=== PATIENT | female | born 1940 | race Caucasian/White ===

== ENCOUNTER 2016-12-14 09:25 | Emergency (ER) | payer MEDICARE, OTHER ==
[~2016-12-14] VITALS: Ht 160 cm; Wt 73.5 kg
--- NOTE | 2016-12-14 10:18 | PHYS DOC ---
Past Medical History Past Medical History: High Cholesterol, Hypertension, Stroke Additional Past Medical Histor: shingles, colon polyps Past Surgical History: Appendectomy, Cholecystectomy, Hysterectomy Additional Past Surgical Histo: colon resection Alcohol Use: None Drug Use: None Adult General Chief Complaint Chief Complaint: DIZZY/LIGHT HEADED HPI HPI Patient is a 76 year old female who presents with dizziness. Patient reports for the past month she has been "dizzy my head". She describes a feeling of lightheaded, but has not passed out. She denies any vertigo. She saw her PCP for the same last month, with no official diagnosis made. She denies any chest discomfort or SOB. No clear inciting or mitigating factors. Of note, patient is worried about the possibility of a brain tumor since her daughter had similar symptoms and was diagnosed with a tumor. Review of Systems Review of Systems Constitutional: Lightheaded episodes. Denies fever or chills Eyes: Denies change in visual acuity or eye pain HENT: Denies nasal congestion or sore throat Respiratory: Denies cough or shortness of breath Cardiovascular: Denies chest pain GI: Denies abdominal pain, nausea, vomiting, bloody stools or diarrhea : Denies dysuria or hematuria Musculoskeletal: Denies back pain or joint pain Integument: Denies rash or skin lesions Neurologic: Denies headache, focal weakness or sensory changes Current Medications Current Medications Current Medications Medications (Trade) Dose Ordered Sig/Cherry Start Time Stop Time Status Last Admin Dose Admin Sodium Chloride (Iv Sodium Chloride 0.9% 500ml Bag) 500 ml @ 500 mls/hr 1X ONCE 12/14/16 10:30 12/14/16 11:29 DC 12/14/16 10:41 500 MLS/HR Allergies Allergies Allergies Coded Allergies Type Severity Reaction Last Updated Verified codeine Adverse Reaction Intermediate "vomiting" 08/24/14 Yes Physical Exam Physical Exam Constitutional: Well developed, well nourished, no acute distress, non-toxic appearance HENT: Normocephalic, atraumatic, bilateral external ears normal Eyes: PERRL, EOMI, conjunctiva normal, no discharge Neck: Normal range of motion, no stridor Cardiovascular: Heart rate normal, regular rhythm, no murmur Lungs & Thorax: Bilateral breath sounds clear to auscultation Abdomen: Bowel sounds normal, soft, non-distended, no TTP Skin: Warm, dry, no erythema, no rash Extremities: No obvious deformity, no edema Neurologic: Alert and oriented X 3, GCS 15, CN II-XII grossly intact, strength intact and symmetrical throughout, sensation to light touch intact throughout, no dystaxia noted Current Patient Data Vital Signs Vital Signs Date Time Temp Pulse Resp B/P Pulse Ox O2 Delivery O2 Flow Rate FiO2 12/14/16 11:08 65 170/77 96 12/14/16 10:05 97.8 14 Room Air 97.8 Lab Values Laboratory Tests Test 12/14/16 10:10 12/14/16 10:30 White Blood Count 7.4x10^3/uL (4.0-11.0) Red Blood Count 4.65x10^6/uL (3.50-5.40) Hemoglobin 13.7g/dL (12.0-15.5) Hematocrit 40.3% (36.0-47.0) Mean Corpuscular Volume 87fL (79-100) Mean Corpuscular Hemoglobin 30pg (25-35) Mean Corpuscular Hemoglobin Concent 34g/dL (31-37) Red Cell Distribution Width 13.2% (11.5-14.5) Platelet Count 250x10^3/uL (140-400) Neutrophils (%) (Auto) 62% (31-73) Lymphocytes (%) (Auto) 26% (24-48) Monocytes (%) (Auto) 11% (0-9) H Eosinophils (%) (Auto) 1% (0-3) Basophils (%) (Auto) 1% (0-3) Neutrophils # (Auto) 4.6x10^3uL (1.8-7.7) Lymphocytes # (Auto) 1.9x10^3/uL (1.0-4.8) Monocytes # (Auto) 0.8x10^3/uL (0.0-1.1) Eosinophils # (Auto) 0.1x10^3/uL (0.0-0.7) Basophils # (Auto) 0.1x10^3/uL (0.0-0.2) Sodium Level 143mmol/L (136-145) Potassium Level 3.8mmol/L (3.5-5.1) Chloride Level 104mmol/L (98-107) Carbon Dioxide Level 27mmol/L (21-32) Anion Gap 12 (6-14) Blood Urea Nitrogen 20mg/dL (7-20) Creatinine 1.2mg/dL (0.6-1.0) H Estimated GFR (Cockcroft-Gault) 43.6 Glucose Level 142mg/dL (70-99) H Calcium Level 9.5mg/dL (8.5-10.1) Troponin I Quantitative < 0.017ng/mL (0.000-0.055) Urine Collection Type Unknown Urine Color Yellow Urine Clarity Clear Urine pH 5.5 Urine Specific [place] 1.020 Urine Protein Negativemg/dL (NEG-TRACE) Urine Glucose (UA) Negativemg/dL (NEG) Urine Ketones (Stick) Negativemg/dL (NEG) Urine Blood Negative (NEG) Urine Nitrite Negative (NEG) Urine Bilirubin Negative (NEG) Urine Urobilinogen Dipstick 0.2mg/dL (0.2 mg/dL) Urine Leukocyte Esterase Moderate (NEG) Urine RBC 0/HPF (0-2) Urine WBC 5-10/HPF (0-4) Urine Squamous Epithelial Cells Mod/LPF Urine Bacteria Few/HPF (0-FEW) Urine Mucus Mod/LPF Laboratory Tests 12/14/16 10:10 Laboratory Tests 12/14/16 10:10 Microbiology 12/14/16 Urine Culture - Preliminary, Resulted 12/14/16 Urine Culture Result 1 ([place]) - Preliminary, Resulted Microbiology 12/14/16 Urine Culture - Preliminary, Resulted 12/14/16 Urine Culture Result 1 ([place]) - Preliminary, Resulted EKG EKG EKG (my read): sinus rhythm, rate 67, LAD, intervals wnl, no acute ischemic changes Radiology/Procedures Radiology/Procedures CXR: IMPRESSION: No acute or focal process. No significant change CT head: Impression: No acute intracranial abnormality is seen. Course & Med Decision Making Course & Med Decision Making Pertinent Labs and Imaging studies reviewed. (See chart for details) Patient is 76-year-old female who presents with dizziness for the past month. No concerning findings on physical exam. Will check EKG, chest x-ray, CT head, labs to evaluate. Imaging results as above. Blood work unremarkable. UA equivocal for UTI, patient says she has no symptoms so will await culture before treating. Discussed results with patient, who is feeling okay at this time. Given duration of symptoms, I do not believe it is imperative the patient be admitted today. Instead we will discharge her with outpatient follow-up and strict return precautions. Dragon Disclaimer Dragon Disclaimer This electronic medical record was generated, in whole or in part, using a voice recognition dictation system. Departure Departure Impression: Primary Impression: Lightheadedness Disposition: HOME, SELF-CARE Condition: STABLE Referrals: CAROLYN HOLT MD (PCP) Patient Instructions: Dizziness Additional Instructions: Thank you for allowing us to provide care today in the Emergency Department. Keep your follow up appointment with your primary care doctor. Return promptly to the Emergency Department if you develop any new or concerning symptoms, as we discussed. HECTOR SILVA MD Dec 14, 2016 10:18
[2016-12-14 10:28] LABS: BASO # 0.1 x10^3/uL (0.0-0.2); BASO % 1 % (0-3); EOS % 1 % (0-3); HEMATOCRIT 40.3 % (36.0-47.0); HEMOGLOBIN 13.7 g/dL (12.0-15.5); LYMPH # 1.9 x10^3/uL (1.0-4.8); LYMPH % 26 % (24-48); MEAN CORPUSCULAR HEMOGLOBIN 30 pg (25-35); MEAN CORPUSCULAR HGB CONC 34 g/dL (31-37); MEAN CORPUSCULAR VOLUME 87 fL (79-100); MONO % 11 % (0-9); NEUT % 62 % (31-73); PLATELET COUNT 250 x10^3/uL (140-400); RED BLOOD COUNT 4.65 x10^6/uL (3.50-5.40); RED CELL DISTRIBUTION WIDTH 13.2 % (11.5-14.5); WHITE BLOOD COUNT 7.4 x10^3/uL (4.0-11.0)
[2016-12-14] MEDS ORDERED: IV NORMAL SALINE 500ML BAG 500 ML IV ONE (10:30)
--- NOTE | 2016-12-14 10:38 | RAD ---
Indication dizziness. Worsening over of month. Protocol study. PA and lateral views of the chest were obtained and are compared to an examination 10/16/2011. The heart and pulmonary vessels appear normal. The lungs are clear. There has not been a significant change compared to the previous exam. IMPRESSION: No acute or focal process. No significant change
[2016-12-14 10:44] LABS: CALCIUM 9.5 mg/dL (8.5-10.1); CREATININE 1.2 mg/dL (0.6-1.0); GFR 43.6; POTASSIUM 3.8 mmol/L (3.5-5.1)
[2016-12-14 11:01] LABS: BILIRUBIN,URINE NEGATIVE (NEG); GLUCOSE,URINE NEGATIVE (NEG); NITRITE,URINE NEGATIVE (NEG); PH,URINE 5.5; PROTEIN,URINE NEGATIVE (NEG-TRACE); UROBILINOGEN,URINE 0.2 mg/dL (0.2 mg/dL)
[2016-12-14 11:08] VITALS: BP 170/77
--- NOTE | 2016-12-14 11:08 | EKG ---
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
[2016-12-14 11:12] LABS: BACTERIA,URINE FEW /HPF (0-FEW); RBC,URINE 0 /HPF (0-2); SQUAMOUS EPITHELIAL CELL,UR MOD /LPF
--- NOTE | 2016-12-14 11:55 | RAD ---
Clinical indications: Dizziness.. Technique: Noncontrast axial cross sectional scanning of the head was performed. PQRS Compliance Statement: One or more of the following individualized dose reduction techniques were utilized for this examination: 1. Automated exposure control 2. Adjustment of the mA and/or kV according to patient size 3. Use of iterative reconstruction technique Findings: No acute intracranial hemorrhage or midline shift or mass-effect or hydrocephalus or extra-axial fluid collection is seen. No focal hypodense area or sulci effacement is seen to indicate an acute infarct or edema radiographically. No skull fracture or pneumocephalus is seen. No opacification of the mastoid sinuses or the paranasal sinuses is seen. The maxillary sinuses are not completely seen in this study. Impression: No acute intracranial abnormality is seen.
== END 2016-12-14 12:38 | disposition home or self-care (01) ==
LOC: ER 09:25 → EDBD 09:25 → ER 12:38
DX: R42 Dizziness and giddiness (principal); E78.00 Pure hypercholesterolemia, unspecified; I10 Essential (primary) hypertension; Z86.73 Personal history of transient ischemic attack (TIA), and cerebral infarction without residual deficits; Z90.710 Acquired absence of both cervix and uterus; Z90.49 Acquired absence of other specified parts of digestive tract; Z88.5 Allergy status to narcotic agent
CPT/HCPCS: 36415; 70450; 71020; 80048; 81001; 84484; 85027; 87086; 93005; 96360; 99285; J7040

== ENCOUNTER → 2018-08-18 | Outpatient (CLI) | payer BC ==
[2018-08-13 10:30] VITALS: BP 147/68
[~2018-08-18] MED LIST: ALEN70TA5 PO; AMOX1TAB11 PO; ASPI-612 PO; ATOR40TA59 PO; CLON0.2T PO; ENOX40DI3 SQ; Fluconazole PO; GABA-586 PO; HYDR-2758 PO; HYDR25TA9 PO; IPRA3AMP29 NEB; LOSA100T7 PO; METF500T16 PO; PRAM0.255 PO; Pantoprazole PO; SIME125C75 PO; VERA240C2 PO
--- NOTE | 2018-08-18 15:16 | RAD ---
Portable AP upright chest x-ray performed at 1:12 PM Clinical indications: Pneumonia. Follow-up study. COMPARISON: August 12, 2018. FINDINGS: Again seen is a diffuse left lung field infiltrate more consolidative within the left lung base. Since the previous study, the left hemidiaphragm is better visualized indicative of interval improvement of the left lung base consolidative infiltrate. Small left sided pleural effusion is stable. Right lung field remains clear. No pneumothorax is seen. Esophageal stent is present. The heart size and mediastinum are stable. IMPRESSION: Improvement of left lung base consolidative infiltrate. Electronically signed by: Norris Gonzalez MD (08/18/2018 3:13 PM) [facility]
== END | disposition home or self-care (01) ==
PROVIDERS: ATTEND Internal Medicine
DX: J18.9 Pneumonia, unspecified organism (principal); R91.8 Other nonspecific abnormal finding of lung field
CPT/HCPCS: 71045

== ENCOUNTER 2018-10-23 12:07 | Emergency (ER) | payer BC ==
[~2018-10-23] VITALS: Ht 160 cm; Wt 62.6 kg
[~2018-10-23 12:07] MED LIST changes: +CRESTOR40 MG PO; +CYPR4TAB31 PO; -GABA-586 PO; +GABA300C18 PO; +HYDR-2145 PO; -HYDR-2758 PO; +HYDR-2761 PO; +HYDR12.58 PO; -HYDR25TA9 PO; +LOSA100T14 PO; -LOSA100T7 PO; +ONDA8TAB9 PO
[2018-10-23] MEDS ORDERED: IPRATRPIUM/ALBUTEROL 0.5/2.5MG 3 ML NEBU. NEB ONE (12:30)
--- NOTE | 2018-10-23 13:31 | RAD ---
CHEST PA LATERAL History: shortness of breath. Comparison: September 09, 2018 Heart size: Stable Lyric/mediastinum: Stable Lungs: Mild linear markings left lung compatible with fibrosis or atelectasis. Mild markings in left lung base. No consolidated infiltrate. Pleura: There is some focal pleural thickening or fluid in the left lung base note that a CT scan from September 12, 2018 demonstrated some pleural thickening and pleural fluid collection. Pneumothorax: None visualized Bones: Regional skeleton appears grossly intact. Miscellaneous: Stent, presumably within the esophagus, again identified. Impression: 1. Left pleural base opacity, may represent chronic loculated pleural effusion or empyema. 2. No consolidating infiltrate. Mild markings in left lung, likely atelectasis. Electronically signed by: Danial Vigil MD (10/23/2018 1:27 PM) [facility]
[2018-10-23] MEDS ORDERED: NITROGLYCERIN SUBLINGUAL 0.4 MG BOTTLE OF 25. SL STA (14:05)
[2018-10-23] MEDS ORDERED: LORazepam 1 MG TABLET PO ONE (14:15)
[2018-10-23] MEDS ORDERED: CLON0.5T11 PO (15:15)
--- NOTE | 2018-10-23 15:15 | PHYS DOC ---
Past Medical History Past Medical History: Diabetes-Type II, High Cholesterol, Hypertension, Renal Disease, Stroke Additional Past Medical Histor: shingles, colon polyps Past Surgical History: Appendectomy, Cholecystectomy, Hysterectomy Additional Past Surgical Histo: colon resection; espohageal stent -2018; Alcohol Use: None Drug Use: None Adult General Chief Complaint Chief Complaint: SHORTNESS OF BREATH HPI HPI Patient is a 78-year-old female who presents with complaint of difficulty breathing that has been present since back in July when she had to have an esophageal stent placed. Patient is actually scheduled to have that stent removed tomorrow. states that she had gotten a bit anxious at home and just feels like she is not able to breathe. She does admit to a cough but states that there is nothing that has really changed regarding her cough. She has had no nausea or vomiting. Review of Systems Review of Systems Constitutional: Denies fever or chills [] Respiratory: Positive cough and shortness of breath [] Cardiovascular: No additional information not addressed in HPI [] GI: Denies abdominal pain, nausea, vomiting or diarrhea [] Musculoskeletal: Denies back pain or joint pain [] All other systems were reviewed and found to be within normal limits, except as documented in this note. Current Medications Current Medications Current Medications Medications (Trade) Dose Ordered Sig/Cherry Start Time Stop Time Status Last Admin Dose Admin Albuterol/ Ipratropium (Duoneb) 3 ml 1X ONCE 10/23/18 12:30 10/23/18 12:31 DC 10/23/18 12:22 3 ML Lorazepam (Ativan) 0.5 mg 1X ONCE 10/23/18 14:15 10/23/18 14:16 DC 10/23/18 14:54 0.5 MG Nitroglycerin (Nitrostat) 0.4 mg 1X STAT 10/23/18 14:05 10/23/18 14:10 DC 10/23/18 14:54 0.4 MG Allergies Allergies Allergies Coded Allergies Type Severity Reaction Last Updated Verified codeine Adverse Reaction Intermediate "vomiting" 08/24/14 Yes Physical Exam Physical Exam Constitutional: Well developed, well nourished, no acute distress, non-toxic appearance. [] HENT: Normocephalic, atraumatic, bilateral external ears normal, oropharynx moist, no oral exudates, nose normal. [] Eyes: PERRLA, EOMI, conjunctiva normal, no discharge. [] Neck: Normal range of motion, no tenderness, supple. [] Cardiovascular: Regular rate and rhythm [] Lungs & Thorax: Lungs reveal some expiratory wheezes bilaterally to auscultation [] Abdomen: Bowel sounds normal, soft, no tenderness. [] Skin: Warm, dry, no erythema, no rash. [] Extremities: No tenderness, no cyanosis, no clubbing, ROM intact, no edema. [] Neurologic: Alert and oriente, normal motor function, normal sensory function, no focal deficits noted. [] Current Patient Data Vital Signs Vital Signs Date Time Temp Pulse Resp B/P (MAP) Pulse Ox O2 Delivery O2 Flow Rate FiO2 10/23/18 14:54 87 122/58 10/23/18 12:25 96 Nasal Cannula 10/23/18 12:10 97.5 28 97.5 EKG EKG [] Radiology/Procedures Radiology/Procedures [] Impressions: Chest x-ray demonstrates no acute process. Course & Med Decision Making Course & Med Decision Making Pertinent Labs and Imaging studies reviewed. (See chart for details) [] Dragon Disclaimer Dragon Disclaimer This electronic medical record was generated, in whole or in part, using a voice recognition dictation system. Departure Departure Impression: Primary Impression: Shortness of breath Disposition: 01 HOME, SELF-CARE Condition: STABLE Referrals: PATRICK MONTEMAYOR (PCP) Patient Instructions: Shortness of Breath Scripts Clonazepam (CLONAZEPAM) 0.5 Mg Tablet 1 TAB PO BID PRN for ANXIETY, #14 TAB Prov: PAOLA RUIZ Jr. DO 10/23/18 PAOLA RUIZ Jr. DO Oct 23, 2018 15:15
[2018-10-23 15:56] VITALS: BP 104/56
== END 2018-10-23 16:20 | disposition home or self-care (01) ==
LOC: ER 12:07
DX: R06.02 Shortness of breath (principal); R05 Cough; R06.2 Wheezing; E78.00 Pure hypercholesterolemia, unspecified; I10 Essential (primary) hypertension; E11.9 Type 2 diabetes mellitus without complications; Z86.73 Personal history of transient ischemic attack (TIA), and cerebral infarction without residual deficits; Z88.5 Allergy status to narcotic agent
CPT/HCPCS: 71046; 94640; 99283; J7620

== ENCOUNTER 2018-11-14 12:39 | Inpatient (IN) | payer BC ==
[~2018-11-14] VITALS: Ht 154.9 cm; Wt 58.1 kg
[~2018-11-14 12:39] MED LIST changes: -ALEN70TA5 PO; +ALEN70TA6 PO; +CLON0.5T11 PO; -SIME125C75 PO; +SIME125C76 PO
[2018-11-14] MEDS ORDERED: IPRATRPIUM/ALBUTEROL 0.5/2.5MG 3 ML NEBU. NEB ONE (13:00)
--- NOTE | 2018-11-14 13:23 | RAD ---
EXAM: CHEST 1 VIEW History: Shortness of breath COMPARISON: 10/23/2018 TECHNIQUE: Single portable radiograph of the chest FINDINGS: The cardiac silhouette is unremarkable. Mild left lung base airspace opacity likely atelectasis or infiltrate. Mild prominent bilateral interstitial lung markings. IMPRESSION: Mild left lung base airspace opacity likely atelectasis or infiltrate. Electronically signed by: Dinesh Bragg MD (11/14/2018 1:19 PM) [facility]
[2018-11-14 13:40] LABS: BASO # 0.1 x10^3/uL (0.0-0.2); BASO % 1 % (0-3); EOS % 0 % (0-3); HEMATOCRIT 33.1 % (36.0-47.0); HEMOGLOBIN 11.3 g/dL (12.0-15.5); LYMPH # 2.4 x10^3/uL (1.0-4.8); LYMPH % 24 % (24-48); MEAN CORPUSCULAR HEMOGLOBIN 28 pg (25-35); MEAN CORPUSCULAR HGB CONC 34 g/dL (31-37); MEAN CORPUSCULAR VOLUME 82 fL (79-100); MONO # 0.9 x10^3/uL (0.0-1.1); MONO % 9 % (0-9); NEUT # 6.6 x10^3uL (1.8-7.7); NEUT % 66 % (31-73); PLATELET COUNT 341 x10^3/uL (140-400); RED BLOOD COUNT 4.02 x10^6/uL (3.50-5.40); RED CELL DISTRIBUTION WIDTH 20.4 % (11.5-14.5); WHITE BLOOD COUNT 9.9 x10^3/uL (4.0-11.0)
[2018-11-14 13:50] LABS: CALCIUM 9.8 mg/dL (8.5-10.1); CREATININE 3.1 mg/dL (0.6-1.0); GFR 14.5; POTASSIUM 3.4 mmol/L (3.5-5.1)
[2018-11-14 13:56] LABS: ALBUMIN 3.3 g/dL (3.4-5.0); DIRECT BILIRUBIN 0.3 mg/dL (0.0-0.2); TOTAL BILIRUBIN 0.9 mg/dL (0.2-1.0); TOTAL PROTEIN 7.4 g/dL (6.4-8.2)
--- NOTE | 2018-11-14 14:13 | EKG ---
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
--- NOTE | 2018-11-14 14:17 | PHYS DOC ---
Past Medical History Past Medical History: Diabetes-Type II, High Cholesterol, Hypertension, Renal Disease, Stroke Additional Past Medical Histor: shingles, colon polyps Past Surgical History: Appendectomy, Cholecystectomy, Hysterectomy Additional Past Surgical Histo: colon resection; espohageal stent -2018; Alcohol Use: None Drug Use: None Adult General Chief Complaint Chief Complaint: SHORTNESS OF BREATH HPI HPI 78-year-old female presenting to the emergency department today with shortness of breath for the past 2 weeks. She reports a recent removal of the stent from her esophagus. Her shortness of breath is worse with exertion and improved with rest. She denies any chest pain fevers chills headache. Location; lungs. Duration; intermittent. No alleviating factors. ROS neg for chest pain abdominal pain vomiting fevers or chills. All other review of systems is negative unless otherwise noted in history of present illness. ED course: 78-year-old female presenting the emergency department today with worsening shortness of breath. Afebrile here. Heart rate within normal limits. Respiratory elevated along with decreased oxygenation. Nasal cannula applied which brought the patient's oxygenation to the mid 90s. Patient has clear lungs bilaterally. Abdomen is soft and nontender. EKG chest x-ray and blood work ordered. CBC is within normal limits. Mild anemia. Up from previous. Chemistry panel shows elevated BUN and creatinine. ProBNP is elevated. D-dimer is elevated. Troponin within normal limits. ProBNP is elevated. Chest x-ray shows possible pneumonia. I spoke to Dr. Hobbs who accepts patient for admission. Given the elevated d-dimer, we will need to pursue a ventilation perfusion scan because of the poor renal function. I spoke with Dr. Hobbs a second time and informed him of the elevated d-dimer test. It will take a while for the VQ scan to be completed. We will admit the patient to the hospital pending a VQ scan. Dr. Hobbs has accepted the patient for admission and he will follow up on the VQ scan which he agrees to by phone. Review of Systems Review of Systems SEE ABOVE. Current Medications Current Medications Current Medications Medications (Trade) Dose Ordered Sig/Cherry Start Time Stop Time Status Last Admin Dose Admin Albuterol/ Ipratropium (Duoneb) 3 ml 1X ONCE 11/14/18 13:00 11/14/18 13:01 DC 11/14/18 13:14 3 ML Piperacillin Sod/ Tazobactam Sod (Zosyn Per Pharmacy) 1 each PRN DAILY PRN 11/14/18 15:30 Piperacillin Sod/ Tazobactam Sod 2.25 gm/Sodium Chloride 50 ml @ 100 mls/hr 1X ONCE 11/14/18 15:45 11/14/18 16:14 DC 11/14/18 15:54 100 MLS/HR Vancomycin HCl (Vanco Per Pharmacy) 1 each PRN DAILY PRN 11/14/18 15:30 11/14/18 16:07 1 EACH Vancomycin HCl 1.25 gm/Sodium Chloride 250 ml @ 166.667 mls/hr 1X ONCE 11/14/18 15:45 11/14/18 17:14 11/14/18 16:30 166.667 MLS/HR Allergies Allergies Allergies Coded Allergies Type Severity Reaction Last Updated Verified codeine Adverse Reaction Intermediate "vomiting" 11/14/18 Yes Physical Exam Physical Exam SEE ABOVE Constitutional: Well developed, well nourished, appears mildly anxious HENT: Normocephalic, atraumatic, bilateral external ears normal, oropharynx moist, no oral exudates, nose normal. Eyes: PERRLA, EOMI, conjunctiva normal, no discharge. [] Neck: Normal range of motion, no tenderness, supple, no stridor. Cardiovascular:Heart rate regular rhythm, no murmur [] Lungs & Thorax: Bilateral breath sounds clear to auscultation [] Abdomen: Bowel sounds normal, soft, no tenderness, no masses, no pulsatile masses. Skin: Warm, dry, no erythema, no rash. [] Back: No tenderness, no CVA tenderness. Extremities: No tenderness, no cyanosis, no clubbing, ROM intact, no edema. Neurologic: Alert and oriented X 3, normal motor function, normal sensory function, no focal deficits noted. [] Psychologic: Affect normal, judgement normal, mood normal. [] Current Patient Data Vital Signs Vital Signs Date Time Temp Pulse Resp B/P (MAP) Pulse Ox O2 Delivery O2 Flow Rate FiO2 11/14/18 15:40 62 24 123/57 (79) 98 Nasal Cannula 2.0 11/14/18 12:55 97.5 97.5 Lab Values Laboratory Tests Test 11/14/18 13:27 White Blood Count 9.9 x10^3/uL (4.0-11.0) Red Blood Count 4.02 x10^6/uL (3.50-5.40) Hemoglobin 11.3 g/dL (12.0-15.5) L Hematocrit 33.1 % (36.0-47.0) L Mean Corpuscular Volume 82 fL (79-100) Mean Corpuscular Hemoglobin 28 pg (25-35) Mean Corpuscular Hemoglobin Concent 34 g/dL (31-37) Red Cell Distribution Width 20.4 % (11.5-14.5) H Platelet Count 341 x10^3/uL (140-400) Neutrophils (%) (Auto) 66 % (31-73) Lymphocytes (%) (Auto) 24 % (24-48) Monocytes (%) (Auto) 9 % (0-9) Eosinophils (%) (Auto) 0 % (0-3) Basophils (%) (Auto) 1 % (0-3) Neutrophils # (Auto) 6.6 x10^3uL (1.8-7.7) Lymphocytes # (Auto) 2.4 x10^3/uL (1.0-4.8) Monocytes # (Auto) 0.9 x10^3/uL (0.0-1.1) Eosinophils # (Auto) 0.0 x10^3/uL (0.0-0.7) Basophils # (Auto) 0.1 x10^3/uL (0.0-0.2) Platelet Estimate Pending D-Dimer (Jadyn) 2.63 ug/mlFEU (0.00-0.50) H Sodium Level 138 mmol/L (136-145) Potassium Level 3.4 mmol/L (3.5-5.1) L Chloride Level 98 mmol/L (98-107) Carbon Dioxide Level 21 mmol/L (21-32) Anion Gap 19 (6-14) H Blood Urea Nitrogen 34 mg/dL (7-20) H Creatinine 3.1 mg/dL (0.6-1.0) H Estimated GFR (Cockcroft-Gault) 14.5 Glucose Level 92 mg/dL (70-99) Calcium Level 9.8 mg/dL (8.5-10.1) Total Bilirubin 0.9 mg/dL (0.2-1.0) Direct Bilirubin 0.3 mg/dL (0.0-0.2) H Aspartate Amino Transferase (AST) 18 U/L (15-37) Alanine Aminotransferase (ALT) 22 U/L (14-59) Alkaline Phosphatase 85 U/L (46-116) Troponin I Quantitative < 0.017 ng/mL (0.000-0.055) GU-Jog-Q-Type Natriuretic Peptide 3677 pg/mL (0-449) H Total Protein 7.4 g/dL (6.4-8.2) Albumin 3.3 g/dL (3.4-5.0) L Lipase 110 U/L (73-393) Laboratory Tests 11/14/18 13:27 Laboratory Tests 11/14/18 13:27 EKG EKG [] Radiology/Procedures Radiology/Procedures [] Course & Med Decision Making Course & Med Decision Making Pertinent Labs and Imaging studies reviewed. (See chart for details) [] Dragon Disclaimer Dragon Disclaimer This electronic medical record was generated, in whole or in part, using a voice recognition dictation system. Departure Departure Impression: Primary Impression: Pneumonia Additional Impression: [id number] kidney injury Disposition: ADMITTED INPATIENT Admitting Physician: Mary Hobbs Condition: STABLE Referrals: PATRICK MONTEMAYOR (PCP) Problem Qualifiers TOMASZ WINN MD Nov 14, 2018 14:17
[2018-11-14] MEDS ORDERED: PIP/TAZO PER PHARMACY MC PRN (15:30)
[2018-11-14] MEDS ORDERED: VANCOMYCIN 1.25 GM in IV NORMAL SALINE 250ML 250 ML IV ONE (15:45)
[2018-11-14] MEDS ORDERED: PIPERACILLIN/TAZOBACTAM 2.25 GM in IV NORMAL SALINE 50ML 50 ML IV ONE (15:45)
[2018-11-14] MEDS: VANCOMYCIN PER PHARMACY MC PRN (16:07)
--- NOTE | 2018-11-14 16:12 | NUR ---
Pharmacy Vancomycin Dosing Note S:Consulted to monitor and dose vancomycin started 11/14/18. O:HENRI ANDERSON is a 78 year old F with Pneumonia. Height: 5 feet, 1 inches Weight: 56.7 kg [place] Body Weight: 47.80 Adjusted Body Weight: 51.36 Dosing Weight: Actual Other Antibiotics: zosyn LABS: Last BUN: 34 Last Creatinine: 3.1 Creatinine Clearance: 11 mL/min Last WBC: 9.9 Last Platelets: 341 Tmax (past 24 hours): 97.5 Microbiology: - I/O: - Vancomycin Dosing: Loading Dose: 1250 mg x1 Dosing Weight: Actual Target Trough: 15-20 A: Based on: weight and renal function P: 1. Dose Vancomycin 1250 mg IV One Time 2. Follow up random level in 48 hours if vancomycin continues 3. Pharmacy will continue to monitor, follow and adjust therapy as needed. Kary Carroll RPH, 11/14/18 [id number]
[2018-11-14 16:57] LABS: ANISOCYTOSIS MOD; PLT ESTIMATE ADEQUATE (ADEQUATE)
--- NOTE | 2018-11-14 17:35 | NUR ---
PATIENT ARRIVED ON THE UNIT PER BED, ASSESSMENT COMPLETED, PATIENT DENIES PAIN OR DISCOMFORT AT THIS TIME, VANCOMYCIN INFUSING THROUGH AN IV IN THE RIGHT AC (20G.), WILL NOTIFY DR. ZAMUDIO FOR ORDERS.
[2018-11-14 19:00] VITALS: BP 131/68
--- NOTE | 2018-11-14 19:27 | RAD ---
Examination: LUNG VENT/PERFUSION SCAN(VQ) History: soa x 1 month. Comparison/Correlation: 11/14/2018 portable chest x-ray exam Findings: 18 mCi xenon gas was administered for ventilation imaging. Delayed washout radiotracer compatible with COPD identified. No ventilation defect. 5 mCi technetium 99m MAA was intravenously administered for perfusion imaging. Imaging was performed in 8 projections. There is no focal mismatch defect identified. No definite matched defect. Impression: Low probability for pulmonary embolism. COPD. Electronically signed by: Philip Durant MD (11/14/2018 7:23 PM) [facility]
--- NOTE | 2018-11-14 19:35 | NUR ---
BLOOD SUGAR PER FINGERSTICK OBTAINED FROM PATIENT AT 1715, READING FOLLOWS 60, PATIENT ALERT AND WITHOUT S/S OF HYPO GLYCEMIA, APPLE JUICE GIVEN TO PATIENT PER HEBREW PROFESSOR (4OZ. CONTAINER X2), PATIENT LEAVES THE UNIT V-Q SCAN BEFORE THIS ENERGY OPERATIONS VICE PRESIDENT CAN ADMINISTER DEXTROSE. DR. ZAMUDIO NOTIFIED AND ORDERS RECEIVED.
[2018-11-14] MEDS: IV DEXTROSE 5% - 0.9 % NACL 1,000 ML IV SCH (20:22)
[2018-11-14] MEDS ORDERED: clonazePAM 0.5 MG TABLET PO PRN (20:30)
[2018-11-14] MEDS ORDERED: ONDANSETRON ODT 4 MG TAB.RAPDIS. PO PRN (20:30)
[2018-11-14] MEDS: IPRATRPIUM/ALBUTEROL 0.5/2.5MG 3 ML NEBU. NEB SCH (20:40)
[2018-11-14] MEDS ORDERED: GABAPENTIN 300 MG CAPSULE. PO SCH (21:00)
[2018-11-14] MEDS: CYPROHEPTADINE 4 MG TABLET. PO SCH (22:00)
[2018-11-14] MEDS: ATORVASTATIN CALCIUM 40 MG TABLET. PO SCH (22:00)
[2018-11-14] MEDS: PRAMIPEXOLE 0.25 MG TABLET. PO SCH (22:00)
[2018-11-14] MEDS: cloNIDine HCL 0.2 MG TABLET PO SCH (22:02)
[2018-11-14 22:58] VITALS: BP 122/62
[2018-11-15] VITALS (7 sets, daily range): BP systolic 83–141; BP diastolic 41–72
[2018-11-15] MEDS: PIPERACILLIN/TAZOBACTAM 2.25 GM in IV NORMAL SALINE 50ML 50 ML IV SCH ×5 (00:09→23:56)
[2018-11-15] MEDS ORDERED: IV NORMAL SALINE 500ML BAG 500 ML IV ONE (03:00)
--- NOTE | 2018-11-15 03:17 | NUR ---
patient blood pressure was 83/41, and heart rate 52. The nurse called Dr Hobbs who ordered Iv bolus 500cc to be infused and to repeat the same if the Blood pressure does not improve. Orders carried out and the nurse will continue to monitor the patient.
[2018-11-15 03:49] LABS: HEMATOCRIT 26.3 % (36.0-47.0); HEMOGLOBIN 8.7 g/dL (12.0-15.5); RED BLOOD COUNT 3.15 x10^6/uL (3.50-5.40); RED CELL DISTRIBUTION WIDTH 20.1 % (11.5-14.5); WHITE BLOOD COUNT 5.9 x10^3/uL (4.0-11.0)
[2018-11-15 04:19] LABS: CALCIUM 8.3 mg/dL (8.5-10.1); CREATININE 2.9 mg/dL (0.6-1.0); GFR 15.7; POTASSIUM 3.2 mmol/L (3.5-5.1)
[2018-11-15] MEDS: IV DEXTROSE 5% - 0.9 % NACL 1,000 ML IV SCH ×2 (06:46→15:40)
[2018-11-15] MEDS: IPRATRPIUM/ALBUTEROL 0.5/2.5MG 3 ML NEBU. NEB SCH ×4 (07:59→19:36)
[2018-11-15] MEDS: cloNIDine HCL 0.2 MG TABLET PO SCH (09:00)
[2018-11-15] MEDS ORDERED: cloNIDine HCL 0.2 MG TABLET PO SCH (09:00)
[2018-11-15] MEDS ORDERED: VERAPAMIL SR 120 MG TABLET.ER. PO SCH (09:00)
[2018-11-15] MEDS: ASPIRIN ENTERIC COATED 81 MG TABLET.DR. PO SCH (09:22)
[2018-11-15] MEDS: CYPROHEPTADINE 4 MG TABLET. PO SCH ×3 (09:22→22:13)
[2018-11-15] MEDS ORDERED: ONDANSETRON PF 4 MG/2 ML VIAL. IV PRN (12:15)
[2018-11-15] MEDS ORDERED: ACETAMINOPHEN 500 MG TABLET PO PRN (12:15)
[2018-11-15] MEDS ORDERED: PANTOPRAZOLE IV PUSH 40 MG VIAL. IVP ONE (12:15)
--- NOTE | 2018-11-15 12:27 | PDOC ---
Provider Note Provider Note Pt seen.H&P dictated.#[id number]. LAUREN ZAMUDIO MD Nov 15, 2018 12:27
[2018-11-15] MEDS ORDERED: ENOXAPARIN 40 MG/0.4 ML SYRINGE. SQ SCH (12:30)
[2018-11-15] MEDS ORDERED: POTASSIUM CHL 20MEQ PREMIX 50 ML IV ONE (12:30)
[2018-11-15] MEDS ORDERED: POTASSIUM CHLORIDE 20 MEQ/15 ML ORAL LIQUID. PO ONE (12:45)
[2018-11-15] MEDS: ENOXAPARIN 30 MG/0.3 ML SYRINGE. SQ SCH (13:08)
[2018-11-15] MEDS: AMINO AC 3%/ELECTROLYTE/GLYCER 1,000 ML IV SCH (13:09)
--- NOTE | 2018-11-15 13:57 | HP ---
ADMIT DATE: 11/14/2018 LOCATION: 528. REASON FOR ADMISSION TO THE HOSPITAL: Nausea, vomiting, shortness of breath, acute on chronic kidney disease. HISTORY OF PRESENT ILLNESS: The patient is a 78-year-old female patient known to me. She had admitted to the hospital 3 months ago for spontaneous pneumomediastinum and pneumothorax from esophageal perforation. At that time, the patient had an esophageal stent and a video-assisted thoracotomy and chest tube placement. She did well and in September, she was admitted for acute on chronic kidney disease. She improved with fluids. Her baseline is around 2 of creatinine. She had esophageal stent removed at the [facility] in October 2-3 weeks ago. She was not doing well, has been having nausea, vomiting and weak, was brought to the hospital, infiltrate in the lung, possible pneumonia. His kidney function was bad at 3.1, BUN 34 and she was not able to keep anything down, dehydrated, was admitted to the hospital. OTHER MEDICAL HISTORY: Hypertension, hyperlipidemia, GERD, diabetes, osteopenia. PAST SURGICAL HISTORY: Had esophageal perforation, spontaneous had esophageal stent placed 3 months ago, removed 3 weeks ago, had a video-assisted thoracotomy for pneumomediastinum, pneumothorax with abscess formation is all healed. She also had history of part of the colon removed, gallbladder surgery, appendectomy, hysterectomy. FAMILY HISTORY: Positive for diabetes, hypertension. SOCIAL HISTORY: Smoked for 25 years, quit a couple of years ago. Denies alcohol. ALLERGIES: CODEINE CAUSES NAUSEA AND VOMITING. MEDICATIONS: Aspirin 81 mg daily, atorvastatin 40 mg daily, clonidine 0.2 twice a day, gabapentin 300 mg daily, hydrochlorothiazide daily, losartan 100 mg daily, metformin 500 mg twice a day which was stopped secondary to kidney failure, Mirapex 0.25 at bedtime, verapamil 240 mg daily, Protonix 40 mg daily. FAMILY HISTORY: Diabetes. SOCIAL HISTORY: Lives at home. She has a family who stays with her. REVIEW OF SYMPTOMS: Not able to keep any food down, nausea and vomiting for last 3-4 days. Denies any chest pain, denies any fever. PHYSICAL EXAMINATION: GENERAL: The patient looks sicker. VITAL SIGNS: Temperature 97, pulse 76, respiration 26, blood pressure 107/68, 94% on 2 liters. HEENT: Head is atraumatic. Pupils equal. Oral cavity: Dry heaves, slight congestion. NECK: Supple. Thyroid not enlarged. JVD not elevated. CHEST: Symmetrical. CARDIOVASCULAR: S1, S2. LUNGS: A few crackles at the bases. ABDOMEN: Soft, bowel sounds present, no mass palpable. EXTERNAL GENITALIA: No Cruz. RECTUM: Deferred. EXTREMITIES: No calf tenderness, no edema. NEUROLOGIC: Moving all extremities. No focal deficits noted. LABORATORY DATA: Shows a white count of 10, hemoglobin 11, platelets 341. D-dimer 2.6. Electrolytes show sodium 138, potassium 3.4, chloride 88, bicarbonate 21, anion gap 19, BUN 34, creatinine 3.1. LFTs were normal. BNP 3677. Troponin was negative and had a chest x-ray shows infiltrate in the left base, had a V/Q scan negative for pulmonary embolism. FINAL IMPRESSION: 1. Nausea and vomiting, possible gastritis. 2. History of esophageal perforation; 3 months ago, had esophageal stent, which was removed 3 weeks ago. 3. Acute on chronic kidney disease. Her baseline creatinine is around less than 2. 4. Hypertension. 5. Chronic obstructive pulmonary disease. 6. Hyperlipidemia. 7. Dehydration. PLAN: At this time, admit to hospital, hydrate with IV fluids, clear liquid diet, Zofran for nausea. Replace potassium and monitor kidney function and see how she improves in the next 24-48 hours. LAUREN ZAMUDIO MD DR: BREEZY/andrew JOB#: [id number] / [id number] PATRICK Ruth
[2018-11-15] MEDS ORDERED: POTASSIUM CL 20MEQ D5-0.9%NACL 1,000 ML IV ONE (15:15)
--- NOTE | 2018-11-15 15:47 | NUR ---
Pt had a run of V-Tach on monitor at 14:48:53 Dr. Hobbs notified. New orders: EKG, IV potassium 20 meq, labs Mag & K+ post fluid infusion.
--- NOTE | 2018-11-15 15:53 | EKG ---
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
[2018-11-15] MEDS: VANCOMYCIN PER PHARMACY MC PRN (15:56)
[2018-11-15] MEDS: PRAMIPEXOLE 0.25 MG TABLET. PO SCH (22:13)
[2018-11-15] MEDS: ATORVASTATIN CALCIUM 40 MG TABLET. PO SCH (22:14)
[2018-11-15 23:12] LABS: MAGNESIUM 1.4 mg/dL (1.8-2.4); POTASSIUM 4.1 mmol/L (3.5-5.1)
[2018-11-16] MEDS ORDERED: MAGNESIUM SULFATE 2GM 50 ML IV ONE
[2018-11-16] MEDS: AMINO AC 3%/ELECTROLYTE/GLYCER 1,000 ML IV SCH ×2 (01:30→14:37)
[2018-11-16 03:00] VITALS: BP 131/58
[2018-11-16 04:59] LABS: BASO % 0 % (0-3); EOS % 0 % (0-3); HEMATOCRIT 27.2 % (36.0-47.0); HEMOGLOBIN 9.2 g/dL (12.0-15.5); LYMPH # 1.6 x10^3/uL (1.0-4.8); LYMPH % 37 % (24-48); MEAN CORPUSCULAR HEMOGLOBIN 28 pg (25-35); MEAN CORPUSCULAR HGB CONC 34 g/dL (31-37); MEAN CORPUSCULAR VOLUME 84 fL (79-100); MONO # 0.6 x10^3/uL (0.0-1.1); MONO % 14 % (0-9); NEUT # 2.1 x10^3uL (1.8-7.7); NEUT % 49 % (31-73); PLATELET COUNT 265 x10^3/uL (140-400); RED BLOOD COUNT 3.24 x10^6/uL (3.50-5.40); RED CELL DISTRIBUTION WIDTH 20.8 % (11.5-14.5); WHITE BLOOD COUNT 4.3 x10^3/uL (4.0-11.0)
[2018-11-16] MEDS: PIPERACILLIN/TAZOBACTAM 2.25 GM in IV NORMAL SALINE 50ML 50 ML IV SCH ×3 (05:49→14:37)
[2018-11-16 05:52] LABS: CALCIUM 8.2 mg/dL (8.5-10.1); CREATININE 2.3 mg/dL (0.6-1.0); GFR 20.5; POTASSIUM 4.5 mmol/L (3.5-5.1)
[2018-11-16] MEDS: PANTOPRAZOLE IV PUSH 40 MG VIAL. IVP SCH (06:47)
[2018-11-16 07:00] VITALS: BP 145/69
[2018-11-16 07:00] LABS: % EOS 4 % (0-5); % LYMPHS 33 % (24-48); % MONOS 8 % (0-10); % SEGS 55 % (35-66); ANISOCYTOSIS MOD; PLT ESTIMATE ADEQUATE (ADEQUATE)
[2018-11-16] MEDS: IPRATRPIUM/ALBUTEROL 0.5/2.5MG 3 ML NEBU. NEB SCH ×4 (07:53→19:30)
[2018-11-16] MEDS: ENOXAPARIN 30 MG/0.3 ML SYRINGE. SQ SCH (09:07)
[2018-11-16] MEDS: CYPROHEPTADINE 4 MG TABLET. PO SCH ×3 (09:07→20:50)
[2018-11-16] MEDS: ASPIRIN ENTERIC COATED 81 MG TABLET.DR. PO SCH (09:07)
[2018-11-16 11:01] VITALS: BP 137/61
--- NOTE | 2018-11-16 12:34 | PDOC ---
PROGRESS NOTES Subjective Subjective feels better ,eating lunch today Objective Objective Vital Signs Date Time Temp Pulse Resp B/P (MAP) Pulse Ox O2 Delivery O2 Flow Rate FiO2 11/16/18 11:47 Room Air 11/16/18 11:01 97.8 65 18 137/61 (86) 100 97.8 Intake and Output 11/16/18 07:01 Intake Total 770 ml Balance 770 ml Intake Oral 720 ml IV Total 50 ml # Voids 1 Physical Exam Abdomen: Normal bowel sounds, Soft Heart: Regular rate, Normal S1, Normal S2 Extremities: No clubbing General: Alert HEENT: Atraumatic Lungs: Clear to auscultation MUSCULOSKELETAL: No deformity Neck: Supple Neuro: Normal speech Psych/Mental Status: Mental status NL Skin: No breakdown Diagnosis Problem List Problems Medical Problems: (1) Vujtg-fw-nonvnbl kidney injury Status: Acute Assessment Assessment Problems Medical Problems: (1) Fuony-cg-snsedva kidney injury Status: Acute FINAL IMPRESSION: 1. Nausea and vomiting, possible gastritis. 2. History of esophageal perforation; 3 months ago, had esophageal stent, which was removed 3 weeks ago. 3. Acute on chronic kidney disease. Her baseline creatinine is around less than 2. 4. Hypertension. 5. Chronic obstructive pulmonary disease. 6. Hyperlipidemia. 7. Dehydration. PLAN: cr trending down with with fluids.2.3 iv vanco+zosyn ID consult. cxr today. At this time, admit to hospital, hydrate with IV fluids, clear liquid diet, Zofran for nausea. Replace potassium and monitor kidney function and see how she improves in the next 24-48 hours. Plan Plan of Care Problems Medical Problems: (1) Zorzb-ep-funxidc kidney injury Status: Acute Comment Review of Relevant I have reviewed the following items jojo (where applicable) has been applied. Labs Laboratory Tests Test 11/15/18 16:44 11/15/18 20:27 11/15/18 22:22 11/16/18 03:55 Glucose (Fingerstick) 146 mg/dL (70-99) 112 mg/dL (70-99) Potassium Level 4.1 mmol/L (3.5-5.1) 4.5 mmol/L (3.5-5.1) Magnesium Level 1.4 mg/dL (1.8-2.4) 1.8 mg/dL (1.8-2.4) White Blood Count 4.3 x10^3/uL (4.0-11.0) Red Blood Count 3.24 x10^6/uL (3.50-5.40) Hemoglobin 9.2 g/dL (12.0-15.5) Hematocrit 27.2 % (36.0-47.0) Mean Corpuscular Volume 84 fL (79-100) Mean Corpuscular Hemoglobin 28 pg (25-35) Mean Corpuscular Hemoglobin Concent 34 g/dL (31-37) Red Cell Distribution Width 20.8 % (11.5-14.5) Platelet Count 265 x10^3/uL (140-400) Neutrophils (%) (Auto) 49 % (31-73) Lymphocytes (%) (Auto) 37 % (24-48) Monocytes (%) (Auto) 14 % (0-9) Eosinophils (%) (Auto) 0 % (0-3) Basophils (%) (Auto) 0 % (0-3) Neutrophils # (Auto) 2.1 x10^3uL (1.8-7.7) Lymphocytes # (Auto) 1.6 x10^3/uL (1.0-4.8) Monocytes # (Auto) 0.6 x10^3/uL (0.0-1.1) Eosinophils # (Auto) 0.0 x10^3/uL (0.0-0.7) Basophils # (Auto) 0.0 x10^3/uL (0.0-0.2) Segmented Neutrophils % 55 % (35-66) Lymphocytes % 33 % (24-48) Monocytes % 8 % (0-10) Eosinophils % 4 % (0-5) Platelet Estimate Adequate (ADEQUATE) Anisocytosis Mod Sodium Level 142 mmol/L (136-145) Chloride Level 110 mmol/L (98-107) Carbon Dioxide Level 22 mmol/L (21-32) Anion Gap 10 (6-14) Blood Urea Nitrogen 27 mg/dL (7-20) Creatinine 2.3 mg/dL (0.6-1.0) Estimated GFR (Cockcroft-Gault) 20.5 Glucose Level 70 mg/dL (70-99) Calcium Level 8.2 mg/dL (8.5-10.1) Test 11/16/18 07:15 11/16/18 07:38 11/16/18 11:36 Glucose (Fingerstick) 63 mg/dL (70-99) 67 mg/dL (70-99) 63 mg/dL (70-99) Microbiology 11/14/18 Blood Culture - Preliminary, Resulted NO GROWTH AFTER 1 DAY Medications Current Medications Amino Acids/ Glycerin/ Electrolytes 1,000 ml @ 80 mls/hr [id number] IV Last administered on 11/15/18at 13:09; Start 11/15/18 at 13:00 Enoxaparin Sodium (Lovenox 30mg Syringe) 30 mg DAILY SQ Last administered on at 09:07; Start 11/15/18 at 12:45 Enoxaparin Sodium (Lovenox 40mg Syringe) 40 mg Q24H SQ ; Start 11/15/18 at 12:30 ; Status UNV Magnesium Sulfate 50 ml @ 25 mls/hr 1X ONCE IV Last administered on 11/16/18at 00:32; Start 11/16/18 at 00:00; Stop 11/16/18 at 01:59; Status DC Pantoprazole Sodium (PROTONIX VIAL for IV PUSH) 40 mg DAILYAC IVP Last administered on 11/16/18at 06:47; Start 11/16/18 at 07:30 Potassium Chloride/Dextrose/ Sod Cl 1,000 ml @ 75 mls/hr 1X ONCE IV Last administered on 11/15/18at 15:45; Start 11/15/18 at 15:15; Stop 11/16/18 at 04:34 ; Status DC Potassium Chloride/Water 50 ml @ 50 mls/hr 1X ONCE IV ; Start 11/15/18 at 12:30 ; Stop 11/15/18 at 13:29; Status UNV Potassium Chloride (KCl Oral Soln) 20 meq ONCE ONCE PO Last administered on 10/22at 13:07; Start 11/15/18 at 12:45; Stop 11/15/18 at 12:46; Status DC Vancomycin HCl (Vancomycin Random Level) 1 each 1X ONCE MC ; Start 11/16/18 at 16:00; Stop 11/16/18 at 16:01 Vitals/I & O Vital Sign - Last 24 Hours 11/15/18 11/15/18 11/15/18 11/15/18 15:00 19:35 19:37 19:40 Temp 97.6 97.4 97.4 97.6 97.4 97.4 Pulse 59 61 61 Resp 20 19 19 B/P (MAP) 94/45 (61) 105/56 (72) 105/56 (72) Pulse Ox 99 98 98 98 O2 Delivery Room Air Room Air Room Air Room Air 11/15/18 11/15/18 11/16/18 11/16/18 20:00 23:00 03:00 07:00 Temp 97.3 97.8 97.8 97.3 97.8 97.8 Pulse 68 61 70 Resp 19 18 18 B/P (MAP) 116/72 (87) 131/58 (82) 145/69 (94) Pulse Ox 98 99 99 O2 Delivery Room Air Room Air Room Air Room Air 11/16/18 11/16/18 11/16/18 11/16/18 07:53 08:00 11:01 11:47 Temp 97.8 97.8 Pulse 65 Resp 18 B/P (MAP) 137/61 (86) Pulse Ox 100 100 O2 Delivery Room Air Room Air Room Air Room Air Intake and Output 11/15/18 11/15/18 11/16/18 15:01 23:01 07:01 Intake Total 300 ml 300 ml 170 ml Balance 300 ml 300 ml 170 ml LAUREN ZAMUDIO MD Nov 16, 2018 12:34
[2018-11-16 15:00] VITALS: BP 115/70
--- NOTE | 2018-11-16 15:03 | RAD ---
CHEST PA LATERAL History: F/U PNEUMONIA Comparison: AP chest November 14, 2018. Findings: The cardiomediastinal silhouette is normal. Left lower lobe airspace disease with air bronchograms is not significant changed. There is small left pleural effusion. There is trace right pleural effusion. No pneumothorax. There is no acute bone abnormality. IMPRESSION: Unchanged left lower lobe pneumonia and small left pleural effusion. Suggest two-view chest follow-up in 6-8 weeks. Electronically signed by: Low Martins MD (11/16/2018 2:58 PM) [facility]
[2018-11-16] MEDS ORDERED: VANCOMYCIN RANDOM LEVEL. MC ONE (16:00)
[2018-11-16] MEDS ORDERED: VANCOMYCIN 750 MG in IV NORMAL SALINE 250ML 250 ML IV SCH (17:00)
[2018-11-16] MEDS: VANCOMYCIN PER PHARMACY MC PRN (17:01)
--- NOTE | 2018-11-16 17:03 | NUR ---
Pharmacy Vancomycin Dosing Note S:Consulted to monitor and dose vancomycin started 11/14/18. O:HENRI ANDERSON is a 78 year old F with Pneumonia . Height: 5 feet, 1 inches Weight: 61.913080 kg [place] Body Weight: 47.80 Adjusted Body Weight: 51.36 Dosing Weight: Actual Other Antibiotics: zosyn LABS: Last BUN: 34 Last Creatinine: 2.3 Creatinine Clearance: 16 mL/min Last WBC: 9.9 Last Platelets: 341 Tmax (past 24 hours): 97.5 Microbiology: I/O: - Drug Levels: Last Random level: 10.5 on 11/16/18 at 1600 Last dose given at Vancomycin Dosing: Loading Dose: 1250 mg x1 Dosing Weight: Actual Target Trough: 15-20 A: Based on: 48 HRS LEVEL P: 1. Begin Vancomycin 750 mg IV q24h 2. Follow up Random level on 11/18/18 at 1630 3. Pharmacy will continue to monitor, follow and adjust therapy as needed. [facility] WH[facility], 11/16/18 [id number]
[2018-11-16 19:00] VITALS: BP 177/86
[2018-11-16] MEDS: PRAMIPEXOLE 0.25 MG TABLET. PO SCH (20:50)
[2018-11-16] MEDS: ATORVASTATIN CALCIUM 40 MG TABLET. PO SCH (20:50)
[2018-11-16 23:00] VITALS: BP 131/64
[2018-11-17] MEDS: PIPERACILLIN/TAZOBACTAM 2.25 GM in IV NORMAL SALINE 50ML 50 ML IV SCH ×2 (00:08→05:33)
[2018-11-17 03:00] VITALS: BP 122/50
[2018-11-17] MEDS: AMINO AC 3%/ELECTROLYTE/GLYCER 1,000 ML IV SCH (05:30)
[2018-11-17] MEDS: PANTOPRAZOLE IV PUSH 40 MG VIAL. IVP SCH (06:46)
[2018-11-17 06:59] LABS: CALCIUM 9.1 mg/dL (8.5-10.1); POTASSIUM 4.3 mmol/L (3.5-5.1)
[2018-11-17 07:00] VITALS: BP 176/78
[2018-11-17] MEDS: IPRATRPIUM/ALBUTEROL 0.5/2.5MG 3 ML NEBU. NEB SCH ×4 (09:00→20:32)
[2018-11-17] MEDS: ENOXAPARIN 30 MG/0.3 ML SYRINGE. SQ SCH (09:27)
[2018-11-17] MEDS: CYPROHEPTADINE 4 MG TABLET. PO SCH ×3 (09:27→20:19)
[2018-11-17] MEDS: ASPIRIN ENTERIC COATED 81 MG TABLET.DR. PO SCH (09:27)
--- NOTE | 2018-11-17 10:00 | PDOC ---
PROGRESS NOTES Subjective Subjective tolerating liquid diet Objective Objective Vital Signs Date Time Temp Pulse Resp B/P (MAP) Pulse Ox O2 Delivery O2 Flow Rate FiO2 11/17/18 09:00 100 Room Air 11/17/18 07:00 97.9 67 18 176/78 (110) 97.9 Intake and Output 11/17/18 07:01 Intake Total 1620 ml Output Total 300 ml Balance 1320 ml Intake Oral 1620 ml Output Urine Total 300 ml # Voids 6 Physical Exam Abdomen: Normal bowel sounds, Soft Heart: Regular rate, Normal S1, Normal S2 Extremities: No clubbing General: Alert HEENT: Atraumatic Lungs: Clear to auscultation MUSCULOSKELETAL: No deformity Neck: Supple Neuro: Normal speech Psych/Mental Status: Mental status NL Skin: No breakdown Diagnosis Problem List Problems Medical Problems: (1) Tdcww-gs-fvwchmu kidney injury Status: Acute Assessment Assessment Problems Medical Problems: (1) Snmqx-iv-tlbazdj kidney injury Status: Acute FINAL IMPRESSION: 1. Nausea and vomiting, possible gastritis. 2. History of esophageal perforation; 3 months ago, had esophageal stent, which was removed 3 weeks ago. 3. Acute on chronic kidney disease. Her baseline creatinine is around 2. 4. Hypertension. 5. Chronic obstructive pulmonary disease. 6. Hyperlipidemia. 7. Dehydration. PLAN: advance diet to regular diet cr trending down with with fluids.2.0 iv vanco+zosyn Spoke with ID cxr minimal left lung infiltrates. d/c home tomorrow Plan Plan of Care Problems Medical Problems: (1) Toxnq-bh-vuwetqf kidney injury Status: Acute Comment Review of Relevant I have reviewed the following items jojo (where applicable) has been applied. Labs Laboratory Tests Test 11/16/18 11:36 11/16/18 16:07 11/16/18 16:15 11/16/18 20:49 Glucose (Fingerstick) 63 mg/dL (70-99) 84 mg/dL (70-99) 74 mg/dL (70-99) Random Vancomycin Level 10.5 mcg/mL Test 11/17/18 06:11 11/17/18 06:58 11/17/18 07:12 Sodium Level 140 mmol/L (136-145) Potassium Level 4.3 mmol/L (3.5-5.1) Chloride Level 107 mmol/L (98-107) Carbon Dioxide Level 23 mmol/L (21-32) Anion Gap 10 (6-14) Blood Urea Nitrogen 25 mg/dL (7-20) Creatinine 2.0 mg/dL (0.6-1.0) Estimated GFR (Cockcroft-Gault) 24.0 Glucose Level 81 mg/dL (70-99) Calcium Level 9.1 mg/dL (8.5-10.1) Glucose (Fingerstick) 77 mg/dL (70-99) 85 mg/dL (70-99) Microbiology 11/14/18 Blood Culture - Preliminary, Resulted NO GROWTH AFTER 2 DAYS Medications Current Medications Vancomycin HCl (Vancomycin Random Level) 1 each 1X ONCE MC Last administered on 11/16/18at 16:00; Start 11/16/18 at 16:00; Stop 11/16/18 at 16:01; Status DC Vancomycin HCl (Vancomycin Trough Level) 1 each 1X ONCE MC ; Start 11/18/18 at 16:30; Stop 11/18/18 at 16:31 Vancomycin HCl 750 mg/Sodium Chloride 250 ml @ 250 mls/hr Q24H IV Last administered on 11/16/18at 17:16; Start 11/16/18 at 17:00 Vitals/I & O Vital Sign - Last 24 Hours 11/16/18 11/16/18 11/16/18 11/16/18 11:01 11:47 15:00 16:33 Temp 97.8 97.8 97.8 97.8 Pulse 65 60 Resp 18 18 B/P (MAP) 137/61 (86) 115/70 (85) Pulse Ox 100 100 O2 Delivery Room Air Room Air Room Air Room Air 11/16/18 11/16/18 11/16/18 11/16/18 19:00 19:31 20:00 23:00 Temp 98.2 98.4 98.2 98.4 Pulse 74 72 Resp 20 20 B/P (MAP) 177/86 (116) 131/64 (86) Pulse Ox 99 99 96 O2 Delivery Room Air Room Air Room Air Room Air 11/17/18 11/17/18 11/17/18 03:00 07:00 09:00 Temp 98.2 97.9 98.2 97.9 Pulse 71 67 Resp 20 18 B/P (MAP) 122/50 (74) 176/78 (110) Pulse Ox 97 97 100 O2 Delivery Room Air Room Air Room Air Intake and Output 11/16/18 11/16/18 11/17/18 15:01 23:01 07:01 Intake Total 900 ml 420 ml 300 ml Output Total 300 ml Balance 600 ml 420 ml 300 ml LAUREN ZAMUDIO MD Nov 17, 2018 10:00
[2018-11-17 10:47] VITALS: BP 186/84
[2018-11-17] MEDS: VERAPAMIL SR 120 MG TABLET.ER. PO SCH ×2 (12:28→20:22)
--- NOTE | 2018-11-17 14:25 | CONS ---
DATE OF CONSULTATION: 11/17/2018 REQUESTING PHYSICIAN: Dr. Hobbs. REASON FOR CONSULTATION: MAC in the pleural fluid. HISTORY OF PRESENT ILLNESS: This is a 78-year-old female who this time admitted with nausea, vomiting, shortness of breath and acute on chronic kidney injury. The patient says she has had some chills. The patient has been put on vancomycin and Zosyn by Dr. Hobbs and consulted to see if the MAC needs anything happened because since she never came to the office for followup. The patient denies any cough. The patient does have weight loss, but denies any night sweats. Denies any fever or chills. No other constitutional symptoms. The patient has been feeling good that she is ready to go home by tomorrow. Kidneys have improved to her baseline. PAST MEDICAL HISTORY: Positive for hypertension, hyperlipidemia, gastroesophageal reflux disease, diabetes, osteopenia. The patient did have Boerhaave's with esophageal perforation, and she did have stenting done as well as she required video-assisted thoractomy. At that time, pleural fluid one of the specimen had grown MAC. The lung tissue was negative and all other cultures were negative. The patient also has had hysterectomy and appendicectomy. Now, the esophageal stent has been removed. SOCIAL HISTORY: Negative for smoking, alcohol, illicit drug use. ALLERGIES: LISTED ALLERGIC TO CODEINE. CURRENT MEDICATIONS: Vancomycin and Zosyn. REVIEW OF SYSTEMS: As per HPI, all other systems reviewed are negative. PHYSICAL EXAMINATION: GENERAL: Alert, oriented female, not in distress. VITAL SIGNS: Stable, afebrile. HEENT: NAD. NECK: Supple, no JVP, no lymphadenopathy. LUNGS: Clear. HEART: S1, S2 regular. ABDOMEN: Benign. EXTREMITIES: No edema, cyanosis. SKIN: Unremarkable. NEUROLOGIC: The patient is neurologically intact. LABORATORY DATA: White count is normal. Platelets are normal. BUN and creatinine are 25 and 2. Urinalysis not done. The pleural fluid from 07/31/2018 has been positive with MAC. There was another specimen on 07/31/2018, which was negative as well as there is pleural fluid from 08/07, was negative and another from 08/[address] done in September of last year. It showed improving left lower lobe atelectasis and consolidation. Residual loculated appearing fluid was present. Chest x-ray is now showing unchanged left lower lobe pneumonia and small pleural effusion. IMPRESSION: 1. The patient's presentation of nausea, vomiting, shortness of breath, maybe chills and acute kidney injury that seems to have all improved. 2. Renal insufficiency, baseline. 3. History of esophageal perforation with stenting done as well as VATS done for pleural effusion at that time, from 07/31/2018, one of the fluid had MAC positive. Recommend with one specimen positive and there are other three specimens at the same time or afterwards negative and the patient does not have any symptoms related to the MAC, I do not recommend any treatment. We will do another CAT scan to see if that area continues to improve. Once it continues to improve, then there is no need for further management. If it does get worse, then we may have to reevaluate and/or thoracentesis done to obtain the specimen for MAC. Thank you very much, Dr. Hobbs, for giving me the opportunity to participate in this patient's care. JESICA RENO MD DR: MAICO/andrew JOB#: [id number] / [id number]
[2018-11-17 15:00] VITALS: BP 119/53
--- NOTE | 2018-11-17 16:04 | RAD ---
CT of the chest without contrast, 11/17/2018: HISTORY: Follow-up pneumonia, loculated fluid Noncontrast scans were obtained as requested and compared to a study from 09/12/2018. The esophageal stent has been removed. No mediastinal mass or abnormal fluid collection is seen. There is mild calcific plaquing of the thoracic aorta and its branches. Minimal coronary artery calcifications are present. Left-sided pleural thickening and pleural fluid continues to regress. There is a persistent loculated appearing rounded fluid collection in the posterior medial aspect of the left lower chest extending into the posterior costophrenic angle. It currently measures approximately 4 cm in greatest width compared to a measurement of 4.5 cm on the previous study. No air bubbles are seen within this process. There is a calcified granuloma in the left upper lobe. Several small subpleural nodular opacities in the lateral aspect of the right upper lobe are unchanged. The largest of these measures 3 mm. The right lung is otherwise clear. There is no evidence of right-sided pleural fluid. No new pulmonary abnormality is detected. Incidental note is again made of bilateral renal cysts. IMPRESSION: 1. Interval removal of the esophageal stent since 09/22/2018. 2. Further interval clearing of the left lower chest pleural-parenchymal opacities and residual pleural fluid. 3. A focal loculated residual fluid collection posterior medially in the left lower chest has decreased slightly in size. 4. Stable tiny right upper lobe pulmonary nodules. PQRS Compliance Statement: One or more of the following individualized dose reduction techniques were utilized for this examination: 1. Automated exposure control 2. Adjustment of the mA and/or kV according to patient size 3. Use of iterative reconstruction technique Electronically signed by: Scotty Davis MD (11/17/2018 4:00 PM) [facility]
--- NOTE | 2018-11-17 16:22 | NUR ---
SW following pt for anticipated dc needs. Chart reviewed. Pt lives alone in a trailer. Pt was evaluated by PT/OT and no skilled needs indicated at this time. SW will be available for dc needs.
[2018-11-17 18:43] VITALS: BP 132/59
[2018-11-17] MEDS: ATORVASTATIN CALCIUM 40 MG TABLET. PO SCH (20:19)
[2018-11-17] MEDS: PRAMIPEXOLE 0.25 MG TABLET. PO SCH (20:19)
[2018-11-17 23:00] VITALS: BP 149/55
[2018-11-18 03:00] VITALS: BP 130/68
[2018-11-18 06:34] VITALS: BP 137/60
[2018-11-18] MEDS: IPRATRPIUM/ALBUTEROL 0.5/2.5MG 3 ML NEBU. NEB SCH ×2 (07:45→12:00)
[2018-11-18 08:52] VITALS: BP 137/60
[2018-11-18] MEDS: CYPROHEPTADINE 4 MG TABLET. PO SCH (08:52)
[2018-11-18] MEDS: VERAPAMIL SR 120 MG TABLET.ER. PO SCH (08:52)
[2018-11-18] MEDS: PANTOPRAZOLE IV PUSH 40 MG VIAL. IVP SCH (08:53)
[2018-11-18] MEDS: ASPIRIN ENTERIC COATED 81 MG TABLET.DR. PO SCH (08:53)
[2018-11-18] MEDS: ENOXAPARIN 30 MG/0.3 ML SYRINGE. SQ SCH (08:54)
--- NOTE | 2018-11-18 09:35 | PDOC ---
PROGRESS NOTES Subjective Subjective feels better ,want to go home Objective Objective Vital Signs Date Time Temp Pulse Resp B/P (MAP) Pulse Ox O2 Delivery O2 Flow Rate FiO2 11/18/18 08:52 65 137/60 11/18/18 07:46 98 Room Air 11/18/18 06:34 98.4 18 98.4 Intake and Output 11/18/18 07:01 Intake Total 900 ml Output Total 0 ml Balance 900 ml Intake Oral 900 ml Output Urine Total 0 ml # Voids 4 Physical Exam Abdomen: Normal bowel sounds, Soft Heart: Regular rate, Normal S1, Normal S2 Extremities: No clubbing General: Alert HEENT: Atraumatic Lungs: Clear to auscultation MUSCULOSKELETAL: No deformity Neck: Supple Neuro: Normal speech Psych/Mental Status: Mental status NL Skin: No breakdown Diagnosis Problem List Problems Medical Problems: (1) Qnlon-mf-uqxssbu kidney injury Status: Acute Assessment Assessment Problems Medical Problems: (1) Vxxmu-ue-ppyctkc kidney injury Status: Acute FINAL IMPRESSION: 1. Nausea and vomiting, possible gastritis. 2. History of esophageal perforation; 3 months ago, had esophageal stent, which was removed 3 weeks ago. 3. Acute on chronic kidney disease. Her baseline creatinine is around 2. 4. Hypertension. 5. Chronic obstructive pulmonary disease. 6. Hyperlipidemia. 7. Dehydration. PLAN: advanced diet to regular diet cr trending down with with fluids.2.0, base line CT chest loculated fluid left lower lobe small, dec in seize from previously Spoke with ID cxr minimal left lung infiltrates. d/c home today Plan Plan of Care Problems Medical Problems: (1) Vpgup-rb-qzeyzjr kidney injury Status: Acute Comment Review of Relevant I have reviewed the following items jojo (where applicable) has been applied. Labs Laboratory Tests Test 11/17/18 11:10 11/17/18 16:27 11/17/18 20:04 11/18/18 04:22 Glucose (Fingerstick) 93 mg/dL (70-99) 74 mg/dL (70-99) 85 mg/dL (70-99) 67 mg/dL (70-99) Test 11/18/18 04:47 11/18/18 07:55 Glucose (Fingerstick) 82 mg/dL (70-99) 68 mg/dL (70-99) Microbiology 11/14/18 Blood Culture - Preliminary, Resulted NO GROWTH AFTER 3 DAYS Medications Current Medications Vancomycin HCl (Vancomycin Trough Level) 1 each 1X ONCE MC ; Start 11/18/18 at 16:30; Stop 11/18/18 at 16:31; Status Cancel Verapamil HCl (Calan Sr) 120 mg BID PO Last administered on 11/18/18at 08:52; Start 11/17/18 at 10:30 Vitals/I & O Vital Sign - Last 24 Hours 11/17/18 11/17/18 11/17/18 11/17/18 10:47 12:28 13:14 15:00 Temp 97.8 97.9 97.8 97.9 Pulse 67 67 73 Resp 18 18 B/P (MAP) 186/84 (118) 186/84 119/53 (75) Pulse Ox 96 100 99 O2 Delivery Room Air Room Air Room Air 11/17/18 11/17/18 11/17/18 11/17/18 17:03 18:43 20:00 20:22 Temp 97.7 97.7 Pulse 72 71 Resp 18 B/P (MAP) 132/59 (83) 142/73 Pulse Ox 97 99 O2 Delivery Room Air Room Air Room Air 11/17/18 11/17/18 11/18/18 11/18/18 20:32 23:00 03:00 06:34 Temp 97.5 98.0 98.4 97.5 98.0 98.4 Pulse 73 92 65 Resp 18 18 18 B/P (MAP) 149/55 (86) 130/68 (88) 137/60 (85) Pulse Ox 98 98 96 96 O2 Delivery Room Air Room Air Room Air Room Air 11/18/18 11/18/18 07:46 08:52 Pulse 65 B/P (MAP) 137/60 Pulse Ox 98 O2 Delivery Room Air Intake and Output 11/17/18 11/17/18 11/18/18 15:01 23:01 07:01 Intake Total 600 ml 300 ml 0 ml Output Total 0 ml 0 ml Balance 600 ml 300 ml 0 ml LAUREN ZAMUDIO MD Nov 18, 2018 09:34
[2018-11-18] MEDS ORDERED: PANT20TA2 PO (09:39)
--- NOTE | 2018-11-18 10:47 | NUR ---
Reviewed d/c information with patient. No further questions for me at this time. Prescriptions and belongings packed. IV d/c no with issues. Taken down to parking lot by WC, brother providing transportation home. Cleared by ID, prior to leaving. No new orders or prescriptions from ID at this time.
--- NOTE | 2018-11-18 11:10 | PDOC ---
Infectious Disease Note Subjective Subjective pt is feeling good ROS ROS no n/v/d/sob Vital Sign Vital Signs Vital Signs Date Time Temp Pulse Resp B/P (MAP) Pulse Ox O2 Delivery O2 Flow Rate FiO2 11/18/18 08:52 65 137/60 11/18/18 08:00 Room Air 11/18/18 07:46 98 11/18/18 06:34 98.4 18 98.4 Physical Exam PHYSICAL EXAM GENERAL: Alert, oriented female, not in distress. VITAL SIGNS: Stable, afebrile. HEENT: NAD. NECK: Supple, no JVP, no lymphadenopathy. LUNGS: Clear. HEART: S1, S2 regular. ABDOMEN: Benign. EXTREMITIES: No edema, cyanosis. SKIN: Unremarkable. NEUROLOGIC: The patient is neurologically intact. Labs Lab Laboratory Tests Test 11/17/18 11:10 11/17/18 16:27 11/17/18 20:04 11/18/18 04:22 Glucose (Fingerstick) 93 mg/dL (70-99) 74 mg/dL (70-99) 85 mg/dL (70-99) 67 mg/dL (70-99) Test 11/18/18 04:47 11/18/18 07:55 Glucose (Fingerstick) 82 mg/dL (70-99) 68 mg/dL (70-99) Micro Microbiology 11/14/18 Blood Culture - Preliminary, Resulted NO GROWTH AFTER 3 DAYS Objective Assessment 1. The patient's presentation of nausea, vomiting, shortness of breath, maybe chills and acute kidney injury that seems to have all improved. 2. Renal insufficiency, baseline. 3. History of esophageal perforation with stenting done as well as VATS done for pleural effusion at that time, from 07/31/2018, one of the fluid had MAC positive. Plan Plan of Care no need for antibiotics or MAC therapy ct noted, fluid smaller, d/w dr Faby austin to d/c JESICA RENO MD Nov 18, 2018 11:10
--- NOTE | 2018-11-23 10:25 | PDOC ---
Provider Note Provider Note Discharge summary dictated.#[id number]. LAUREN ZAMUDIO MD Nov 23, 2018 10:25
--- NOTE | 2018-11-23 10:38 | DS ---
DATE OF DISCHARGE: 11/18/2018 REASON FOR ADMISSION TO THE HOSPITAL: Nausea, vomiting, acute on chronic kidney failure. HISTORY OF PRESENT ILLNESS: The patient is a 78-year-old female patient who was having nausea and vomiting, not able to keep anything down and she also had worsening kidney failure, when she came in her creatinine was 3.1. The patient was given IV fluids, Zofran for nausea and vomiting. The patient 3 months ago was admitted for esophageal perforation, had a stent in the esophagus and also at that time she had a pneumothorax and pneumomediastinum, had a large abscess in the left pleura, had a video-assisted thoracotomy surgery done there. She was getting better from that. She had the stent removed recently 1-2 weeks ago from the esophagus. HOSPITAL COURSE: The patient was admitted to the hospital. Chest x-ray showed left lower lung infiltrate. Had a V/Q scan negative for PE, but her D-dimer was high. The patient was seen by Infectious Disease, she had MAC in the cultures before 1 out of, I think, 5. ID was consulted. It was probably not significant. Her CT chest shows residual fluid in the left lung, much improved from before. On the whole, the patient's condition has improved and her creatinine came down to 2, eating and tolerating diet okay. The patient was discharged home. FINAL DIAGNOSES: 1. Acute on chronic kidney disease, CRF stage 3. 2. Nausea and vomiting. Recently, the patient had an esophageal stent removed. 3. Small Left lung small fluid collection improved from before. 4. Diabetes. 5. Hypertension. 6. General debility. 7.H/o esophageal perforation and complications from that 3 months ago DISPOSITION: The patient was discharged home. Follow with her PCP, Dr. Duran. LAUREN ZAMUDIO MD DR: BREEZY/andrew JOB#: [id number] / [id number] PATRICK Ruth
== END 2018-11-18 10:40 | disposition home or self-care (01) | DRG 177 ==
LOC: ER 12:39 → 5 NORTH 15:56
PROVIDERS: ADMIT Internal Medicine; ATTEND Internal Medicine
DX: J69.0 Pneumonitis due to inhalation of food and vomit (principal); N17.0 Acute kidney failure with tubular necrosis; J44.0 Chronic obstructive pulmonary disease with (acute) lower respiratory infection; K29.70 Gastritis, unspecified, without bleeding; I12.9 Hypertensive chronic kidney disease with stage 1 through stage 4 chronic kidney disease, or unspecified chronic kidney disease; E11.22 Type 2 diabetes mellitus with diabetic chronic kidney disease; N18.9 Chronic kidney disease, unspecified; E86.0 Dehydration; E78.5 Hyperlipidemia, unspecified; D64.9 Anemia, unspecified; E78.00 Pure hypercholesterolemia, unspecified; M85.80 Other specified disorders of bone density and structure, unspecified site; K21.9 Gastro-esophageal reflux disease without esophagitis; R79.1 Abnormal coagulation profile; Z82.49 Family history of ischemic heart disease and other diseases of the circulatory system; Z86.010 Personal history of colon polyps; Z83.3 Family history of diabetes mellitus; Z86.73 Personal history of transient ischemic attack (TIA), and cerebral infarction without residual deficits; Z90.49 Acquired absence of other specified parts of digestive tract; Z90.710 Acquired absence of both cervix and uterus; Z88.8 Allergy status to other drugs, medicaments and biological substances; Z79.899 Other long term (current) drug therapy
CPT/HCPCS: 36415; 71045; 71046; 71250; 78582; 80048; 80076; 80202; 82962; 83690; 83735; 83880; 84132; 84484; 85007; 85025; 85027; 85379; 87040; 93005; 94640; 94760; 96365; 96367; 96374; A9540; A9558; C9113; J1650; J2543; J3370; J3475; J7040; J7042; J7050; J7620; 99285-25; G0378; J7030

== ENCOUNTER → 2021-03-27 | Outpatient (CLI) | payer MEDICARE ==
[~2021-03-27] MED LIST changes: -ALEN70TA6 PO; +ALEN70TA71 PO; -ASPI-612 PO; +ASPI-886 PO; +CLON-77 PO; -CLON0.5T11 PO; +PANT20TA2 PO; -SIME125C76 PO; +SIME125C85 PO
--- NOTE | 2021-03-27 13:54 | RAD ---
MR#: [id number] Date of Study: 03/27/2021 Ordering Physician: CHANTELLE ARRIOLA, Referring Physician: CHANTELLE ARRIOLA, Tech: Prabhjot Thomas MBA, RDMS, RVT, RDCS, RTR APPROVED REPORT Bilateral Lower Extremity Venous Study for DVT Patient Location: OUT-PATIENT Indications Lower Extremity Edema: Bilateral Vein Imaging (Right) CFV (R): Compressible SFJ (R): Compressible FEM (R): Compressible POP (R): Compressible DFV (R): Compressible PTV (R): Spontaneous GSV (R): Spontaneous Peroneals (R): Spontaneous Vein Imaging (Left) CFV (L): Compressible SFJ (L): Compressible FEM (L): Compressible POP (L): Compressible DFV (L): Compressible PTV (L): Spontaneous GSV (L): Spontaneous Peroneals (L): Spontaneous Doppler Evaluation (Right) CFV (R): Spontaneous POP (R):Spontaneous Doppler Evaluation (Left) CFV (L):Spontaneous POP (L):Spontaneous Findings The bilateral lower extremity deep veins were evaluated for thrombus with color Doppler, spectral and grayscale images. On the right the grayscale images of the common femoral, superficial femoral and popliteal veins do n ot demonstrate any evidence of thrombus and these veins appear to be compressible. The below-knee vei ns were not well visualized but grossly appear to be compressible. Spectral imaging and color Doppler do not reveal any evidence of obstruction to flow with normal respirophasic variation above the knee . Below the knee there is spontaneous flow noted. On the left, the grayscale images of the common femoral, superficial femoral and popliteal veins do n ot demonstrate any evidence of thrombus and these veins appear to be compressible. The below-knee vei ns again were not well visualized but grossly appear to be compressible. Spectral imaging and color D oppler do not reveal any evidence of obstruction to flow with normal respirophasic variation above th e knee. The below-knee veins demonstrate spontaneous flow. Critical Notification Critical Value: No <Conclusion> 1. No evidence of DVT in the bilateral lower extremities. Signed by : Chavez Edge, Electronically Approved : 03/27/2021 13:54:18
--- NOTE | 2021-03-27 13:56 | RAD ---
MR#: [id number] Date of Study: 03/27/2021 Ordering Physician: CHANTELLE ARRIOLA, Referring Physician: CHANTELLE ARRIOLA, Tech: Prabhjot Thomas MBA, RDMS, RVT, RDCS, RTR APPROVED REPORT Patient Location : OUT-PATIENT Indications Lower Extremity Edema : Bilateral Findings Grayscale images of the bilateral saphenofemoral junctions are grossly unremarkable. The right great saphenous vein measures 3.5 mm and the left great saphenous vein measures 4.8 mm. The bilateral gre ater and lesser saphenous veins did not show any evidence of reflux. Critical Notification Critical Value: No <Conclusion> 1. Negative for reflux in the bilateral greater and lesser saphenous veins Signed by : Chavez Edge, Electronically Approved : 03/27/2021 13:56:00
--- NOTE | 2021-03-27 14:01 | CARD ---
MR#: [id number] Date of Study: 03/27/2021 Ordering Physician: CHANTELLE ARRIOLA, Referring Physician: CHANTELLE ARRIOLA, Tech: Denise Bills, [facility] APPROVED REPORT EXAM: Two-dimensional and M-mode echocardiogram with Doppler and color Doppler. Other Information Quality : AverageHR: 69bpm INDICATION Murmur RISK FACTORS Hypertension Hyperlipidemia 2D DIMENSIONS RVDd3.0 (2.9-3.5cm)Left Atrium(2D)3.0 (1.6-4.0cm) IVSd1.4 (0.7-1.1cm)Aortic Root(2D)3.1 (2.0-3.7cm) LVDd4.8 (3.9-5.9cm)LVOT Diameter1.9 (1.8-2.4cm) PWd1.1 (0.7-1.1cm)LVDs2.5 (2.5-4.0cm) FS (%) 122.7 %SV19.0 ml LVEF(%)85.8 (>50%) Aortic Valve AoV Peak Joe.184.6cm/sAoV VTI38.0cm AO Peak GR.13.6mmHgLVOT Peak Joe.156.0cm/s LVOT VTI 33.35cmAO Mean GR.8mmHg TOMASZ (VMAX)1.92pw8OAZ (VTI)2.61cm2 Mitral Valve MV E Hidlakft84.2cm/sMV E Peak Gr.129mmHg MV DECEL [id number] A Nnmsigit389.3cm/s MV E Mean Gr.3mmHgMV TNQ252yp E/A Ratio0.6MVA (PHT)2.08cm2 TDI E/Lateral E'15.5E/Medial E'12.3 Pulmonary Valve PV Peak Alvhqxeg00.2cm/sPV Peak Grad.3mmHg Tricuspid Valve TR P. Evvmwrai706vp/sRAP AGIFFMNU3ctIz TR Peak Gr.81zkQdMUUQ46ghMv Pulmonary Vein S1 Ulsszwnl36.1cm/sD2 Ioohmzez81.5cm/s PVa [id number] LEFT VENTRICLE The left ventricle is normal size. There is mild to moderate concentric left ventricular hypertrophy. The left ventricular systolic function is normal and the ejection fraction is within normal range. T he Ejection Fraction is 60-65%. There is normal LV segmental wall motion. Transmitral Doppler flow pa ttern is Grade I-abnormal relaxation pattern. RIGHT VENTRICLE The right ventricle is normal size. There is normal right ventricular wall thickness. The right ventr icular systolic function is normal. ATRIA The left atrium size is normal. The right atrium size is normal. The interatrial septum is intact wit h no evidence for an atrial septal defect or patent foramen ovale as noted on 2-D or Doppler imaging. AORTIC VALVE The aortic valve is normal in structure and function. Doppler and Color Flow revealed no significant aortic regurgitation. There is no significant aortic valvular stenosis. Calculated aortic valve area is 2.68 cm2 with maximum pressure gradient of 16 mmHg and mean pressure gradient of 9 mmHg. MITRAL VALVE Mitral annular calcification is moderate. There is no evidence of mitral valve prolapse. There is no mitral valve stenosis. Doppler and Color-flow revealed trace mitral regurgitation. TRICUSPID VALVE The tricuspid valve is normal in structure and function. Doppler and Color Flow revealed trace tricus pid regurgitation with an estimated PAP of 27 mmHg. There is no tricuspid valve stenosis. PULMONIC VALVE Doppler and Color Flow revealed trace pulmonic valvular regurgitation. There is no pulmonic valvular stenosis. GREAT VESSELS The aortic root is normal in size. The ascending aorta is mildly dilated measuring 3.5 cm. The IVC is normal in size and collapses >50% with inspiration. PERICARDIAL EFFUSION There is no evidence of significant pericardial effusion. Critical Notification Critical Value: No <Conclusion> The left ventricular systolic function is normal and the ejection fraction is within normal range. Th e Ejection Fraction is 60-65%. There is normal LV segmental wall motion. Signed by : Chavez Edge, Electronically Approved : 03/27/2021 14:00:57
== END ==
LOC: US 07:28
PROVIDERS: ATTEND Internal Medicine Cardiovascular Disease
DX: I82.493 Acute embolism and thrombosis of other specified deep vein of lower extremity, bilateral (principal); R06.00 Dyspnea, unspecified; R60.0 Localized edema; R01.1 Cardiac murmur, unspecified
CPT/HCPCS: 93306; 93970

== ENCOUNTER 2022-03-08 15:13 | Emergency (ER) | payer MEDICARE ==
[~2022-03-08] VITALS: Ht 160 cm; Wt 69.0 kg
[2022-03-08 15:15] VITALS: BP 161/75
--- NOTE | 2022-03-08 16:16 | PHYS DOC ---
Past Medical History Past Medical History: Diabetes-Type II, High Cholesterol, Hypertension, Renal Disease, Stroke Additional Past Medical Histor: shingles, colon polyps Past Surgical History: Appendectomy, Cholecystectomy, Hysterectomy, Other Additional Past Surgical Histo: colon resection; espohageal stent -2018; Smoking Status: Never Smoker Alcohol Use: None Drug Use: None General Adult EDM: Chief Complaint: UPPER EXTREMITY PAIN HPI: HPI: Patient is an 81-year-old female who presents today with left upper back left shoulder pain. Patient states that approximately 10 days ago she started experiencing left shoulder left upper back pain after falling asleep on the couch, she said she saw Dr. Hobbs on Saturday and was told to do some exercises with a towel, she said she has been doing them for 2 days and they have not helped with the pain she presents today for further evaluation and management of this. Patient denies chest pain, shortness of breath, fever chills. Patient states she took 1 dose of Tylenol 2 days ago and she said that did not help and she also applied icy hot once 2 days ago and that did not help relieve any of the pain either. Review of Systems: Review of Systems: Constitutional: Denies fever or chills. [] Eyes: Denies change in visual acuity. [] HENT: Denies nasal congestion or sore throat. [] Respiratory: Denies cough or shortness of breath. [] Cardiovascular: Denies chest pain or edema. [] GI: Denies abdominal pain, nausea, vomiting, bloody stools or diarrhea. [] : Denies dysuria. [] Musculoskeletal: Left shoulder left upper back pain denies back pain or joint pain. [] Integument: Denies rash. [] Neurologic: Denies headache, focal weakness or sensory changes. [] Endocrine: Denies polyuria or polydipsia. [] Lymphatic: Denies swollen glands. [] Psychiatric: Denies depression or anxiety. [] Heart Score: C/O Chest Pain: No Risk Factors: Risk Factors: DM, Current or recent (<one month) smoker, HTN, HLP, family history of CAD, obesity. Risk Scores: Score 0 - 3: 2.5% MACE over next 6 weeks - Discharge Home Score 4 - 6: 20.3% MACE over next 6 weeks - Admit for Clinical Observation Score 7 - 10: 72.7% MACE over next 6 weeks - Early Invasive Strategies Allergies: Allergies: Allergies Coded Allergies Type Severity Reaction Last Updated Verified codeine Adverse Reaction Intermediate "vomiting" 11/14/18 Yes Physical Exam: PE: Constitutional: Well developed, well nourished, no acute distress, non-toxic appearance. [] HENT: Normocephalic, atraumatic, bilateral external ears normal, oropharynx moist, no oral exudates, nose normal. [] Eyes: PERRLA, EOMI, conjunctiva normal, no discharge. [] Neck: Normal range of motion, no tenderness, supple, no stridor. [] Cardiovascular:Heart rate regular rhythm, no murmur [] Lungs & Thorax: Bilateral breath sounds clear to auscultation [] Abdomen: Bowel sounds normal, soft, no tenderness, no masses, no pulsatile masses. [] Skin: Warm, dry, no erythema, no rash. [] Back: No tenderness, no CVA tenderness. [] Extremities: Left arm shoulder tenderness throughout the trapezius muscle all the way down through the left scapular area, multiple trigger points palpated at this time, patient has normal range of motion of the left arm with no neurovascular compromise distal to the pain. Neurologic: Alert and oriented X 3, normal motor function, normal sensory funct ion, no focal deficits noted. [] Psychologic: Affect normal, judgement normal, mood normal. [] Current Patient Data: Vital Signs: Vital Signs Date Time Temp Pulse Resp B/P (MAP) Pulse Ox O2 Delivery O2 Flow Rate FiO2 03/08/22 15:15 98.4 81 20 161/75 (103) 97 Room Air 98.4 EKG: EKG: [] Radiology/Procedures: Radiology/Procedures: [] Course & Med Decision Making: Course & Med Decision Making Pertinent Labs and Imaging studies reviewed. (See chart for details) Patient is in no acute distress, patient will be given Flexeril to be taken 5 mg every 8 hours as needed for muscle spasms and will be also given diclofenac to be taken twice daily with food. Patient is to follow-up with Dr. Hobbs if her pain has not improved over the next 5 days. Lo Disclaimer: Lo Disclaimer: This electronic medical record was generated, in whole or in part, using a voice recognition dictation system. Departure Departure Impression: Primary Impression: Musculoskeletal strain Disposition: 01 HOME / SELF CARE / HOMELESS Condition: STABLE Referrals: LAUREN HOBBS MD (PCP) Patient Instructions: Musculoskeletal Pain Additional Instructions: Diclofenac take 1 tablet twice daily for pain, take with food may cause stomach upset Flexeril 5 mg take 1 tablet every 8 hours as needed for muscle spasms, use with caution may cause drowsiness Ice to the affected area 20 minutes on 3-4 times daily Follow-up with Dr. Hobbs should your symptoms not improve after 5 to 7 days Scripts Diclofenac Sodium (DICLOFENAC SODIUM) 50 Mg Tablet.dr 50 MG PO PRN Q12HRS PRN for PAIN, #30 TAB Prov: ANA RAMÍREZ WAGE ANALYST 03/08/22 Cyclobenzaprine Hcl (CYCLOBENZAPRINE HCL) 10 Mg Tablet 5 MG PO TID PRN for muscle spasm, #14 TAB Prov: ANA RAMÍREZ WAGE ANALYST 03/08/22 ANA RAMÍREZ WAGE ANALYST March 08, 2022 16:16
[2022-03-08] MEDS ORDERED: DICL50TA4 PO (16:36)
[2022-03-08] MEDS ORDERED: CYCL10TA19 PO (16:36)
== END 2022-03-08 16:30 | disposition home or self-care (01) ==
LOC: ER 15:13
DX: S46.912A Strain of unspecified muscle, fascia and tendon at shoulder and upper arm level, left arm, initial encounter (principal); E78.00 Pure hypercholesterolemia, unspecified; E11.22 Type 2 diabetes mellitus with diabetic chronic kidney disease; I12.9 Hypertensive chronic kidney disease with stage 1 through stage 4 chronic kidney disease, or unspecified chronic kidney disease; N18.9 Chronic kidney disease, unspecified; Z86.73 Personal history of transient ischemic attack (TIA), and cerebral infarction without residual deficits; Z90.89 Acquired absence of other organs; Z90.49 Acquired absence of other specified parts of digestive tract; Z90.710 Acquired absence of both cervix and uterus; Z88.5 Allergy status to narcotic agent; X50.9XXA Other and unspecified overexertion or strenuous movements or postures, initial encounter; Y93.89 Activity, other specified; Y92.89 Other specified places as the place of occurrence of the external cause; Y99.8 Other external cause status
CPT/HCPCS: 99283